=== PATIENT | female | born 1970 | race Caucasian/White ===

== ENCOUNTER 2022-05-31 14:32 | Emergency (ER) | payer OTHER, SELFPAY ==
--- NOTE | ~2022-05-31 | XR_ITS ---
EXAM: XR foot RT min 3V DATE: 05/31/2022 14:52 HISTORY: INVERSION INJURY, LAT FOOT PAIN . COMPARISON: None available. FINDINGS: Normal mineralization. No fracture or dislocation. No lytic or blastic lesion. Scattered d egenerative changes in the toes and midfoot. Achilles and plantar enthesopathy. No erosion or periost eal change. Soft tissues within normal limits. IMPRESSION: No acute osseous finding in the right foot. Reviewed, dictated and finalized at location K.
[2022-05-31 14:41] VITALS: BP 145/93; PULSE 105; RESP 18; TEMP 36.8; O2SAT 98
--- NOTE | 2022-05-31 15:15 | ED.LOWEXIN ---
HPI - Extremity Injury (Lower) General Chief Complaint: Extremity Injury, Lower Stated Complaint: Right Foot Injury Time Seen by Provider: 05/31/22 15:16 Source: patient, RN notes reviewed and old records reviewed Mode of arrival: ambulatory Limitations: no limitations History of Present Illness HPI Narrative: 52-year-old female she [facility] to [facility] with complaints of pain to the lateral aspect of her right foot after injury to her right foot last night. Patient states she was dressed up for Halloween and had on heeled boots and she fell with injury to her lateral foot. Patient reports that she can't tolerate any weight bearing to her right foot. Patient is using scooter to get around she had fracture of left ankle last year and has it from that injury. Patient has strong pulses to right foot with no obvious deformity. MD complaint: foot injury Onset (ago): hour(s) (last night) Injury: Right: foot Severity scale (1-10): 7 Treatments prior to arrival: cold therapy Related Data Home Medications Medication Instructions Recorded Confirmed cetirizine 10 mg tablet (Zyrtec) 10 mg PO DAILY 05/31/22 05/31/22 esomeprazole magnesium 40 mg 40 mg PO DAILY 05/31/22 05/31/22 capsule,delayed release hydrochlorothiazide 12.5 mg tablet 12.5 mg PO DAILY 05/31/22 05/31/22 metoprolol succinate 100 mg 100 mg PO DAILY 05/31/22 05/31/22 tablet,extended release 24 hr paroxetine HCl 20 mg tablet 20 mg PO DAILY 05/31/22 05/31/22 rosuvastatin 10 mg tablet 10 mg PO DAILY 05/31/22 05/31/22 Allergies Allergy/AdvReac Type Severity Reaction Status Date / Time No Known Allergies Allergy Verified 05/31/22 15:08 Review of Systems Review of Systems: CONSTITUTIONAL: Denies fever, chills, or sweats. CARDIOVASCULAR: Denies chest pain, palpitations, or edema. RESPIRATORY: Denies cough or dyspnea. SKIN: Denies rash or itching. Denies laceration or abrasions MUSCULOSKELETAL: Reports pain to lateral right foot after injury to foot last evening when she rolled her foot while wearing heeled boots. NEUROLOGIC: Denies numbness, or weakness. All systems reviewed & are unremarkable except as noted in HPI and below [facility] Past Medical History Medical History (Updated 06/07/22 @ 08:07 by Diane Pearl NP) Anxiety Elevated cholesterol Fracture of left ankle GERD (gastroesophageal reflux disease) Hypertension Seasonal allergies Surgical History Surgical History (Updated 06/07/22 @ 08:07 by Diane Pearl NP) History of endometrial ablation Social History Social History (Updated 06/07/22 @ 08:08 by Diane Pearl NP) Smoking status: Never smoker Alcohol intake: current Alcohol use details: social Substance use type: does not use Living arrangements: with family Gender identity (if verbalized by the patient): Female Comments At time of signature, agree with nursing past medical, surgical, social and family history. There is no relevant family history pertinent to the presenting complaint Exam Narrative: GENERAL: Well-appearing, well-nourished, and in no acute distress. HEAD: Normocephalic, atraumatic. EYES: PERRLA, conjunctivae clear NECK: Supple. CHEST: Speaks in full sentences. No respiratory distress.SAO2 98% on room air HEART: Regular rate and rhythm. Normal and equal peripheral pulses. EXTREMITIES: Right foot has normal strength and sensation, normal range of motion but painful. No edema or ecchymosis. 5/5 strength with normal but painful flexion and extension. Normal sensation with sensitivity to light touch and pain.right lateral foot point tenderness.? ?No open wounds, no skin tenting, no devitalized tissue or atrophy, no trophic changes, no obvious deformity, alignment normal, nearby joints and structures intact. Distal pulses palpable and equal bilaterally, skin warm, dry, pink. Capillary refill less than 3 seconds. Course Course Emergency Course: Patient is aware of diagnosis, understand
== END 2022-05-31 15:45 | disposition home or self-care (01) ==
PROVIDERS: Emergency Provider Registered Nurse; PCP Internal Medicine Geriatric Medicine
DX: S90.31XA Contusion of right foot, initial encounter (principal); W19.XXXA Unspecified fall, initial encounter; E78.00 Pure hypercholesterolemia, unspecified; I10 Essential (primary) hypertension; K21.9 Gastro-esophageal reflux disease without esophagitis; F41.9 Anxiety disorder, unspecified
CPT/HCPCS: 73630; 99213; G0463